=== PATIENT | male | born 1995 | race Hispanic/Latino ===

== ENCOUNTER 2023-01-31 14:22 | Emergency (ER) | payer OTHER ==
[~2023-01-31] VITALS: Ht 157.5 cm; Wt 71.7 kg
[2023-01-31 19:13] VITALS: BP 115/91
== END 2023-01-31 19:11 | disposition home or self-care (01) ==
LOC: ED 14:22
DX: S43.005A Unspecified dislocation of left shoulder joint, initial encounter (principal); W06.XXXA Fall from bed, initial encounter
CPT/HCPCS: 23650; 73030; 99283-25; J2704